=== PATIENT | male | born 1995 | race Caucasian/White ===

== ENCOUNTER 2019-05-04 23:46 | Emergency (ER) | payer SELFPAY, OTHER ==
[2019-05-05 05:38] LABS: ADD UMIC NO; UR ASCORBIC ACID NEGATIVE (NEGATIVE); UR BILIRUBIN (Dip) NEGATIVE (NEGATIVE); UR BLOOD (Dip) NEGATIVE (NEGATIVE); UR CLARITY CLEAR (CLEAR); UR COLOR COLORLESS (YELLOW); UR GLUCOSE (Dip) NEGATIVE (NEGATIVE); UR KETONES (Dip) NEGATIVE (NEGATIVE); UR LEUKOCYTE ESTERASE (Dip) NEGATIVE Leu/ul (NEGATIVE); UR NITRITE (Dip) NEGATIVE (NEGATIVE); UR SPECIFIC GRAVITY (Dip) 1.001 (1.003-1.030); UR TOTAL PROTEIN (Dip) NEGATIVE (NEGATIVE); UR UROBILINOGEN (Dip) NEGATIVE (NEGATIVE)
[2019-05-05 06:00] LABS: MONOTEST Positive (NEG)
[2019-05-05 06:37] LABS: HIV 1&2 ANTIBODY NEGATIVE (NEGATIVE)
[2019-05-05 15:44] LABS: RAPID PLASMA REAGIN NONREACTIVE (NR)
[2019-05-06 12:47] LABS: HSV 1 IGG ANTIBODY >58.00 index; HSV 2 IGG ANTIBODY <0.90 index
== END 2019-05-05 07:11 | disposition home or self-care (01) ==
LOC: FTE 23:46
DX: A64 Unspecified sexually transmitted disease (principal); B27.90 Infectious mononucleosis, unspecified without complication; Z87.891 Personal history of nicotine dependence
CPT/HCPCS: 76870; 81003; 86308; 86592; 86692; 86703; 87591; 99284-25